=== PATIENT | female | born 1935 | race Caucasian/White ===

== ENCOUNTER → 2016-08-08 | Outpatient (CLI) | payer MEDICARE | LOC: RAD 08:11 | PROVIDERS: ATTEND Internal Medicine | DX: M77.01 Medial epicondylitis, right elbow (principal) | CPT/HCPCS: 73080 ==

== ENCOUNTER → 2016-10-01 | Outpatient (CLI) | payer MEDICARE | LOC: LAB 11:08 | PROVIDERS: ATTEND Internal Medicine | DX: E03.8 Other specified hypothyroidism (principal) | CPT/HCPCS: 36415; 84443 ==